=== PATIENT | female | born 1960 | race African-American/Black ===

== ENCOUNTER 2020-01-30 12:35 | Emergency (ER) | payer SELFPAY ==
[~2020-01-30] VITALS: Ht 157.5 cm; Wt 71.2 kg
[2020-01-30 13:34] VITALS: BP 138/78
[2020-01-30] MEDS ORDERED: IPRATROPIUM BROM 0.5 MG/2.5ML INH SOL NEB ONE (14:15)
[2020-01-30] MEDS ORDERED: ALBUTEROL SULF 2.5 MG/0.5ML(0.5%) NEB SOLN NEB ONE (14:15)
== END 2020-01-30 15:36 | disposition home or self-care (01) ==
LOC: ER 12:35
DX: J06.9 Acute upper respiratory infection, unspecified (principal)
CPT/HCPCS: 71046; 94640; 99283; J7644

== ENCOUNTER 2024-04-06 07:55 | Emergency (ER) | payer OTHER, MEDICAID ==
[~2024-04-06] VITALS: Ht 157.5 cm; Wt 71.1 kg
[2024-04-06 08:28] VITALS: BP 154/77; PULSE 87; RESP 18; TEMP 98.9; O2SAT 97
[2024-04-06] MEDS ORDERED: IBUP-1456 PO (09:22)
== END 2024-04-06 09:31 | disposition home or self-care (01) ==
LOC: ER 07:55
DX: S83.91XA Sprain of unspecified site of right knee, initial encounter (principal); S00.83XA Contusion of other part of head, initial encounter; Z90.710 Acquired absence of both cervix and uterus; V43.62XA Car passenger injured in collision with other type car in traffic accident, initial encounter; Y93.89 Activity, other specified; Y92.488 Other paved roadways as the place of occurrence of the external cause; Y99.8 Other external cause status
CPT/HCPCS: 70110; 73562